=== PATIENT | male | born 1990 | race Caucasian/White ===

== ENCOUNTER → 2017-06-19 | Emergency (ER) | payer SELFPAY ==
[2017-06-19 13:19] VITALS: BP 118/77; PULSE 80; TEMP 98; BMI 28.7
== END | disposition left against medical advice (07) ==
LOC: JERFT 13:06
DX: Z53.21 Procedure and treatment not carried out due to patient leaving prior to being seen by health care provider (principal)
CPT/HCPCS: 99281-25